=== PATIENT | female | born 1990 ===

== ENCOUNTER 2018-01-14 07:00 | Inpatient (IN) | payer OTHER ==
[~2018-01-14] VITALS: Ht 170.2 cm; Wt 73.5 kg
[2018-02-01] MEDS ORDERED: PRENATAL TABLE1 EACH PO (05:41)
[2018-02-03] MEDS ORDERED: Ferro-Plex CAPLET PO (14:15)
== END 2018-02-03 14:47 | DRG 775 ==
LOC: LDR 02-01 03:14 → SURG-SUITE 02-01 03:14 → LDR 02-04 13:00
PROC: 10E0XZZ Delivery of Products of Conception, External Approach (ICD-10-PCS; principal; 2018-02-01)
PROC: 0HQ9XZZ Repair Perineum Skin, External Approach (ICD-10-PCS; 2018-02-01)
PROC: 10907ZC Drainage of Amniotic Fluid, Therapeutic from Products of Conception, Via Natural or Artificial Opening (ICD-10-PCS; 2018-02-01)
PROC: 4A1HXCZ Monitoring of Products of Conception, Cardiac Rate, External Approach (ICD-10-PCS; 2018-02-01)
DX: O70.0 First degree perineal laceration during delivery (principal); O69.81X0 Labor and delivery complicated by cord around neck, without compression, not applicable or unspecified; Z3A.39 39 weeks gestation of pregnancy; Z37.0 Single live birth